=== PATIENT | female | born 1940 | race Caucasian/White ===

== ENCOUNTER 2019-08-17 20:46 | Outpatient (CLI) | payer MEDICARE | END 2019-08-17 20:47 | disposition home or self-care (01) | LOC: COV 20:46 | PROVIDERS: ATTEND Family Medicine | DX: R05 Cough (principal); M79.10 Myalgia, unspecified site; R53.83 Other fatigue; R43.9 Unspecified disturbances of smell and taste | CPT/HCPCS: 81599 ==